=== PATIENT | male | born 1995 | race Caucasian/White ===

== ENCOUNTER 2017-06-17 13:44 | Inpatient (IN) | payer MEDICAID ==
[~2017-06-17] VITALS: Ht 157.5 cm; Wt 39.0 kg
[2017-06-17 15:31] LABS: BASOPHIL % 0.2 % (0-2); PLATELET COUNT 211 x10^3mcL (130-400); RED CELL DISTRIBUTION WIDTH 12.9 % (11.5-14.5)
[2017-06-17 15:42] LABS: CALCIUM 8.5 mg/dL (8.5-10.1); CARBON DIOXIDE 30.9 mmol/L (21-32); CHLORIDE SERUM 102 mmol/L (98-107); CREATININE SERUM 0.6 mg/dL (0.7-1.3); GFR1 > 60 mL/min; GLUCOSE SERUM 86 mg/dL (74-106); POTASSIUM SERUM 4.2 mmol/L (3.5-5.1); SODIUM SERUM 139 mmol/L (136-145)
[2017-06-17 15:48] LABS: ALKALINE PHOSPHATASE 73 U/L (46-116); ALT/SGPT 30 U/L (16-63); AST/SGOT 37 U/L (15-37); BILIRUBIN TOTAL 0.34 mg/dL (0.20-1.00); TOTAL PROTEIN, SERUM 6.8 g/dL (6.4-8.2)
[2017-06-17 15:55] LABS: ALBUMIN 3.3 g/dL (3.4-5.0)
[2017-06-17] MEDS ORDERED: LAMOTRIGINE100 M1 PO (16:46)
[2017-06-17] MEDS ORDERED: FLUOXETINE HYDR20 M2 PO (16:46)
[2017-06-17] MEDS ORDERED: SEROQUEL100 MG PO (16:47)
[2017-06-17] MEDS ORDERED: POLYETHYLENE GL (16:47)
[2017-06-17] MEDS ORDERED: LORAZEPAM1 MG PO (16:48)
[2017-06-17 17:52] VITALS: BP 117/64
[2017-06-17 18:09] LABS: MAGNESIUM 2.2 mg/dL (1.8-2.4); PHOSPHOROUS 3.7 mg/dL (2.5-4.9)
[2017-06-17 18:10] LABS: CHOLESTEROL/HDL RATIO 2.8
[2017-06-17 18:11] LABS: T3 TOTAL 0.55 ng/mL
[2017-06-17 18:18] LABS: FREE T4 0.87 ng/dL (0.76-1.46); FREE THYROXINE INDEX 2.3 ug/dL (1.4-4.5); T4(THYROXINE) 7.1 ug/dL (4.7-13.3)
[2017-06-17 21:00] VITALS: BP 104/62
[2017-06-18 06:00] VITALS: BP 110/54
[2017-06-18 06:20] LABS: BASOPHIL % 0.2 % (0-2); PLATELET COUNT 213 x10^3mcL (130-400); RED CELL DISTRIBUTION WIDTH 13.2 % (11.5-14.5)
[2017-06-18 06:44] LABS: CARBON DIOXIDE 26.5 mmol/L (21-32); CHLORIDE SERUM 103 mmol/L (98-107); CREATININE SERUM 0.8 mg/dL (0.7-1.3); GFR1 > 60 mL/min; GLUCOSE SERUM 78 mg/dL (74-106); POTASSIUM SERUM 4.2 mmol/L (3.5-5.1); SODIUM SERUM 140 mmol/L (136-145)
[2017-06-18 09:24] VITALS: BP 134/82
[2017-06-18 13:13] VITALS: BP 129/62
[2017-06-18 16:32] VITALS: BP 100/65
[2017-06-18 21:50] VITALS: BP 105/72
[2017-06-19 05:39] VITALS: BP 94/70
[2017-06-19 06:49] LABS: BASOPHIL % 0.3 % (0-2); PLATELET COUNT 211 x10^3mcL (130-400); RED CELL DISTRIBUTION WIDTH 12.9 % (11.5-14.5)
[2017-06-19 07:16] LABS: CALCIUM 9.3 mg/dL (8.5-10.1); CARBON DIOXIDE 27.4 mmol/L (21-32); CREATININE SERUM 0.7 mg/dL (0.7-1.3); GFR1 > 60 mL/min; GLUCOSE SERUM 81 mg/dL (74-106)
[2017-06-19 09:17] LABS: CHLORIDE SERUM 103 mmol/L (98-107); POTASSIUM SERUM 4.2 mmol/L (3.5-5.1); SODIUM SERUM 140 mmol/L (136-145)
[2017-06-19 14:00] VITALS: BP 98/53
[2017-06-19 18:09] VITALS: BP 124/57
[2017-06-19 19:20] VITALS: BP 108/52
[2017-06-20 06:11] VITALS: BP 119/60
[2017-06-20 08:59] VITALS: BP 120/68
[2017-06-20 17:51] VITALS: BP 125/77
[2017-06-20 21:46] VITALS: BP 131/72
[2017-06-21 06:44] VITALS: BP 99/59
[2017-06-21 07:19] LABS: BASOPHIL % 0.2 % (0-2); PLATELET COUNT 338 x10^3mcL (130-400); RED CELL DISTRIBUTION WIDTH 12.9 % (11.5-14.5)
[2017-06-21 07:53] LABS: CALCIUM 8.6 mg/dL (8.5-10.1); CARBON DIOXIDE 25.8 mmol/L (21-32); CHLORIDE SERUM 102 mmol/L (98-107); CREATININE SERUM 0.8 mg/dL (0.7-1.3); GFR1 > 60 mL/min; GLUCOSE SERUM 80 mg/dL (74-106); MAGNESIUM 2.3 mg/dL (1.8-2.4); POTASSIUM SERUM 4.5 mmol/L (3.5-5.1); SODIUM SERUM 138 mmol/L (136-145)
[2017-06-21 16:52] VITALS: BP 144/74
[2017-06-21 19:07] LABS: microscopic required? YES; urine erythrocyte 2+ (NEGATIVE)
[2017-06-21 22:26] VITALS: BP 108/49
[2017-06-22 03:10] VITALS: BP 100/48
[2017-06-22 07:42] VITALS: BP 115/91
[2017-06-22 08:06] LABS: CALCIUM 9.4 mg/dL (8.5-10.1); CARBON DIOXIDE 30.9 mmol/L (21-32); CHLORIDE SERUM 105 mmol/L (98-107); CREATININE SERUM 0.7 mg/dL (0.7-1.3); GFR1 > 60 mL/min; GLUCOSE SERUM 75 mg/dL (74-106); MAGNESIUM 2.2 mg/dL (1.8-2.4); PHOSPHOROUS 4.7 mg/dL (2.5-4.9); POTASSIUM SERUM 4.9 mmol/L (3.5-5.1); SODIUM SERUM 143 mmol/L (136-145)
[2017-06-22 08:08] LABS: BASOPHIL % 0.3 % (0-2); PLATELET COUNT 246 x10^3mcL (130-400); RED CELL DISTRIBUTION WIDTH 13.2 % (11.5-14.5)
[2017-06-22 11:24] VITALS: BP 136/73
[2017-06-22 15:48] VITALS: BP 109/63
[2017-06-22 19:59] VITALS: BP 111/63
[2017-06-22 23:19] VITALS: BP 125/71
[2017-06-23 03:15] VITALS: BP 119/49
[2017-06-23 07:29] VITALS: BP 108/75
[2017-06-23 11:35] VITALS: BP 102/82
[2017-06-23 15:40] VITALS: BP 102/60
[2017-06-23 21:30] VITALS: BP 122/58
[2017-06-24 05:46] VITALS: BP 92/47
[2017-06-25 05:27] VITALS: BP 111/47
[2017-06-25 10:05] VITALS: BP 120/70
[2017-06-25 17:13] VITALS: BP 105/63
[2017-06-25 20:42] VITALS: BP 94/47
[2017-06-26 05:44] VITALS: BP 104/68
[2017-06-26 09:34] VITALS: BP 92/59
[2017-06-26 17:50] VITALS: BP 103/62
[2017-06-26 19:40] VITALS: BP 109/66
[2017-06-27 05:40] VITALS: BP 114/71
[2017-06-27 08:07] VITALS: BP 122/73
[2017-06-27 09:57] VITALS: Ht 157.5 cm; Wt 39.0 kg
[2017-06-27 17:24] VITALS: BP 120/68
[2017-06-27 19:20] VITALS: BP 111/50
[2017-06-28 07:07] VITALS: BP 103/56
[2017-06-28 10:10] VITALS: BP 94/54
[2017-06-28 21:12] VITALS: BP 96/61
[2017-06-29 05:27] VITALS: BP 91/51
[2017-06-29 09:30] VITALS: BP 109/61
[2017-06-29 21:47] VITALS: BP 102/63
[2017-06-30 06:50] VITALS: BP 93/51
[2017-06-30 06:54] VITALS: BP 95/55
[2017-06-30 09:09] VITALS: BP 83/43
[2017-06-30 11:10] VITALS: BP 95/45
[2017-06-30 16:18] VITALS: BP 99/49
[2017-06-30 21:24] VITALS: BP 101/45
[2017-07-01 06:19] VITALS: BP 113/74
[2017-07-01 09:30] VITALS: BP 103/56
[2017-07-02 05:47] VITALS: BP 112/73
[2017-07-02 09:55] VITALS: BP 118/65
[2017-07-02 17:42] VITALS: BP 123/55
[2017-07-02 22:06] VITALS: BP 121/76
[2017-07-03 06:12] VITALS: BP 136/76
[2017-07-03 09:49] VITALS: BP 103/54; BP 93/61
[2017-07-04 09:49] VITALS: BP 126/80
[2017-07-04 17:02] VITALS: BP 103/64
[2017-07-04 22:40] VITALS: BP 149/86
[2017-07-04 23:40] VITALS: BP 127/70
[2017-07-05 06:40] VITALS: BP 103/54
[2017-07-05 08:15] VITALS: BP 132/60
[2017-07-05 10:31] VITALS: BP 121/59
[2017-07-05 16:52] VITALS: BP 96/45
[2017-07-05 21:15] VITALS: BP 126/73
[2017-07-06 06:38] VITALS: BP 101/64
[2017-07-06 15:31] VITALS: BP 121/67
[2017-07-06 19:11] VITALS: BP 126/74
[2017-07-07 18:07] VITALS: BP 121/59
[2017-07-07 20:35] VITALS: BP 111/57
[2017-07-08 08:30] VITALS: BP 112/55
[2017-07-08 20:16] VITALS: BP 110/59
[2017-07-09 06:30] VITALS: BP 101/54
[2017-07-09 10:00] VITALS: BP 106/67
[2017-07-09 17:30] VITALS: BP 106/59
[2017-07-10 01:15] VITALS: BP 105/56
[2017-07-10 06:25] VITALS: BP 106/67
[2017-07-10 08:42] VITALS: BP 126/66
[2017-07-10 17:51] VITALS: BP 107/55
[2017-07-10 20:20] VITALS: BP 117/68; BP 96/44
[2017-07-11 05:30] VITALS: BP 101/56
[2017-07-11 18:15] VITALS: BP 107/56
[2017-07-11 21:38] VITALS: BP 118/65
[2017-07-12 05:30] VITALS: BP 97/53
[2017-07-12 18:00] VITALS: BP 116/68
[2017-07-12 19:49] VITALS: BP 107/61
[2017-07-13 06:06] VITALS: BP 107/66
[2017-07-13 10:33] VITALS: BP 111/57
[2017-07-13 19:35] VITALS: BP 118/63
[2017-07-14 06:19] VITALS: BP 97/58
[2017-07-14 10:00] VITALS: BP 94/47
[2017-07-14 18:18] VITALS: BP 91/52
[2017-07-15 06:00] VITALS: BP 84/52
[2017-07-15 06:20] VITALS: BP 94/54
[2017-07-15 08:00] VITALS: BP 108/72
[2017-07-15 18:30] VITALS: BP 108/67
[2017-07-15 21:52] VITALS: BP 116/62
[2017-07-16 06:32] VITALS: BP 109/72
[2017-07-16 08:30] VITALS: BP 99/61
[2017-07-16 19:13] VITALS: BP 112/58
[2017-07-16 20:24] VITALS: BP 132/91
[2017-07-17 06:21] VITALS: BP 98/52
[2017-07-17 18:00] VITALS: BP 115/63
[2017-07-17 20:35] VITALS: BP 142/67
[2017-07-18 05:51] VITALS: BP 123/63
[2017-07-18 09:29] VITALS: BP 109/67
[2017-07-18 22:30] VITALS: BP 102/59; BP 12/59
[2017-07-19 06:53] VITALS: BP 95/76
[2017-07-19 18:07] VITALS: BP 111/64
[2017-07-19 20:29] VITALS: BP 119/70
[2017-07-20 05:19] VITALS: BP 101/57
[2017-07-20 17:10] VITALS: BP 85/56
[2017-07-20 22:00] VITALS: BP 97/51
[2017-07-21 09:32] VITALS: BP 92/45
[2017-07-22 06:01] VITALS: BP 109/73
[2017-07-22 08:09] VITALS: BP 100/52
[2017-07-22 18:00] VITALS: BP 112/72
[2017-07-22 20:54] VITALS: BP 101/57
[2017-07-23 06:01] VITALS: BP 112/62
[2017-07-23 09:30] VITALS: BP 103/60
[2017-07-23 17:39] VITALS: BP 104/60
[2017-07-23 22:00] VITALS: BP 114/65
[2017-07-24 05:20] VITALS: BP 112/61
[2017-07-24 08:20] VITALS: BP 119/65
[2017-07-24 18:33] VITALS: BP 104/57
[2017-07-25 09:52] VITALS: BP 101/61
[2017-07-25 18:58] VITALS: BP 120/79
[2017-07-25 21:02] VITALS: BP 121/76
[2017-07-26 04:36] VITALS: BP 98/60
[2017-07-26 11:08] VITALS: BP 99/74
[2017-07-26 17:30] VITALS: BP 116/59
[2017-07-26 20:26] VITALS: BP 122/81
[2017-07-27 01:00] VITALS: BP 130/80
[2017-07-27 09:00] VITALS: BP 115/73
[2017-07-27 16:48] VITALS: BP 100/62
[2017-07-27 21:42] VITALS: BP 106/59
[2017-07-28 06:01] VITALS: BP 103/60
[2017-07-28 10:35] VITALS: BP 130/61
[2017-07-28 17:39] VITALS: BP 100/69
[2017-07-28 22:36] VITALS: BP 113/63
[2017-07-29 05:21] VITALS: BP 122/61
[2017-07-29 19:00] VITALS: BP 87/43
[2017-07-30 03:47] VITALS: BP 103/59
[2017-07-30 10:11] VITALS: BP 100/64
[2017-07-30 17:47] VITALS: BP 105/44
[2017-07-31 05:25] VITALS: BP 126/84
[2017-07-31 09:29] VITALS: BP 91/57
[2017-07-31 18:42] VITALS: BP 91/55
[2017-07-31 21:45] VITALS: BP 96/51
[2017-08-01 06:01] VITALS: BP 103/59
[2017-08-01 08:00] VITALS: BP 108/68
[2017-08-01 13:09] VITALS: BP 96/54
[2017-08-01 17:55] VITALS: BP 114/75
[2017-08-01 20:31] VITALS: BP 111/68
[2017-08-02 05:51] VITALS: BP 115/65
[2017-08-02 14:00] VITALS: BP 92/54
[2017-08-02 16:30] VITALS: BP 119/67
[2017-08-02 20:51] VITALS: BP 103/60
[2017-08-03 06:16] VITALS: BP 116/59
[2017-08-03 09:12] VITALS: BP 129/71
[2017-08-03 19:20] VITALS: BP 105/52
[2017-08-04 06:14] VITALS: BP 99/56
[2017-08-04 09:33] VITALS: BP 111/59
[2017-08-04 09:35] VITALS: BP 89/59
[2017-08-04 17:49] VITALS: BP 105/67
[2017-08-04 20:32] VITALS: BP 107/60
[2017-08-05 05:35] VITALS: BP 110/60
[2017-08-05 09:00] VITALS: BP 111/65
[2017-08-05 16:00] VITALS: BP 93/54
[2017-08-05 20:04] VITALS: BP 103/65
[2017-08-06 05:52] VITALS: BP 95/59
[2017-08-06 09:30] VITALS: BP 109/64
[2017-08-06 16:50] VITALS: BP 104/64
[2017-08-06 20:16] VITALS: BP 108/70
[2017-08-07 05:30] VITALS: BP 171/80
[2017-08-07 06:03] VITALS: BP 145/73
[2017-08-07 10:22] VITALS: BP 98/57
[2017-08-08 06:51] VITALS: BP 118/76
[2017-08-08 16:17] VITALS: BP 112/74
[2017-08-08 21:16] VITALS: BP 111/79
[2017-08-09 05:26] VITALS: BP 141/63
[2017-08-09 18:03] VITALS: BP 108/54
[2017-08-10 06:14] VITALS: BP 112/61
[2017-08-10 17:22] VITALS: BP 108/48
[2017-08-10 20:47] VITALS: BP 93/45
[2017-08-11 06:14] VITALS: BP 92/58
[2017-08-11 09:48] VITALS: BP 101/53
[2017-08-11 16:01] VITALS: BP 104/61
[2017-08-11 20:00] VITALS: BP 121/55
[2017-08-12 05:47] VITALS: BP 113/64
[2017-08-12 10:00] VITALS: BP 116/68
[2017-08-12 18:49] VITALS: BP 93/51
[2017-08-12 20:30] VITALS: BP 106/68
[2017-08-13 06:01] VITALS: BP 103/59
[2017-08-13 10:00] VITALS: BP 112/72
[2017-08-13 22:04] VITALS: BP 97/63
[2017-08-14 06:29] VITALS: BP 109/65
[2017-08-14 09:18] VITALS: BP 104/43; BP 131/105
[2017-08-14 15:43] VITALS: BP 105/43
[2017-08-14 21:59] VITALS: BP 103/64
[2017-08-15 09:56] VITALS: BP 117/54
[2017-08-15 19:17] VITALS: BP 110/61
[2017-08-15 22:26] VITALS: BP 114/48
[2017-08-16 05:46] VITALS: BP 110/69
[2017-08-16 10:06] VITALS: BP 106/50
[2017-08-16 16:00] VITALS: BP 115/75
[2017-08-16 20:21] VITALS: BP 115/53
[2017-08-17 06:13] VITALS: BP 111/60
[2017-08-17 09:19] VITALS: BP 101/71
[2017-08-17 13:53] VITALS: BP 107/77
[2017-08-17 17:41] VITALS: BP 101/53
[2017-08-18 05:26] VITALS: BP 106/71
[2017-08-18 10:00] VITALS: BP 117/67; BP 120/73
[2017-08-18 14:05] VITALS: BP 122/70
[2017-08-18 18:18] VITALS: BP 122/79
[2017-08-18 21:22] VITALS: BP 118/66
[2017-08-19 05:34] VITALS: BP 111/64
[2017-08-19 09:30] VITALS: BP 112/68
[2017-08-19 18:30] VITALS: BP 128/69
[2017-08-19 18:59] VITALS: BP 128/69
[2017-08-19 21:30] VITALS: BP 108/64
[2017-08-20 05:21] VITALS: BP 103/70
[2017-08-20 09:33] VITALS: BP 119/67
[2017-08-20 10:12] LABS: CALCIUM 9.3 mg/dL (8.5-10.1); CARBON DIOXIDE 29.9 mmol/L (21-32); CHLORIDE SERUM 108 mmol/L (98-107); CREATININE SERUM 0.9 mg/dL (0.7-1.3); GFR1 > 60 mL/min; GLUCOSE SERUM 92 mg/dL (74-106); MAGNESIUM 2.1 mg/dL (1.8-2.4); PHOSPHOROUS 4.1 mg/dL (2.5-4.9); POTASSIUM SERUM 5.3 mmol/L (3.5-5.1); SODIUM SERUM 147 mmol/L (136-145)
[2017-08-20 10:18] LABS: BASOPHIL % 0.2 % (0-2); PLATELET COUNT 267 x10^3mcL (130-400); RED CELL DISTRIBUTION WIDTH 13.9 % (11.5-14.5)
[2017-08-20 14:44] LABS: UA SPECIFIC GRAVITY 1.025 (1.005-1.035); microscopic required? YES; urine erythrocyte 3+ (NEGATIVE)
[2017-08-20 17:57] VITALS: BP 119/81
[2017-08-21 09:23] VITALS: BP 126/71
[2017-08-21 13:20] VITALS: BP 117/69
[2017-08-21 14:41] LABS: BASOPHIL % 0.3 % (0-2); PLATELET COUNT 213 x10^3mcL (130-400); RED CELL DISTRIBUTION WIDTH 13.7 % (11.5-14.5)
[2017-08-21 14:54] LABS: CALCIUM 8.9 mg/dL (8.5-10.1); CARBON DIOXIDE 31.8 mmol/L (21-32); CHLORIDE SERUM 105 mmol/L (98-107); CREATININE SERUM 0.8 mg/dL (0.7-1.3); GFR1 > 60 mL/min; GLUCOSE SERUM 100 mg/dL (74-106); POTASSIUM SERUM 3.9 mmol/L (3.5-5.1); SODIUM SERUM 144 mmol/L (136-145)
[2017-08-21 19:23] VITALS: BP 119/84
[2017-08-22 07:39] LABS: BASOPHIL % 0.2 % (0-2); CALCIUM 9.1 mg/dL (8.5-10.1); CARBON DIOXIDE 27.5 mmol/L (21-32); CHLORIDE SERUM 105 mmol/L (98-107); CREATININE SERUM 0.8 mg/dL (0.7-1.3); GFR1 > 60 mL/min; GLUCOSE SERUM 86 mg/dL (74-106); PLATELET COUNT 225 x10^3mcL (130-400); RED CELL DISTRIBUTION WIDTH 13.8 % (11.5-14.5); SODIUM SERUM 141 mmol/L (136-145)
[2017-08-22 08:00] VITALS: BP 120/70
[2017-08-22 22:37] VITALS: BP 115/74
[2017-08-23 05:23] VITALS: BP 113/65
[2017-08-23 07:40] LABS: BASOPHIL % 0.3 % (0-2); PLATELET COUNT 226 x10^3mcL (130-400); RED CELL DISTRIBUTION WIDTH 13.5 % (11.5-14.5)
[2017-08-23 07:53] LABS: CALCIUM 9.3 mg/dL (8.5-10.1); CARBON DIOXIDE 27.3 mmol/L (21-32); CHLORIDE SERUM 105 mmol/L (98-107); CREATININE SERUM 0.8 mg/dL (0.7-1.3); GFR1 > 60 mL/min; GLUCOSE SERUM 87 mg/dL (74-106); MAGNESIUM 2.4 mg/dL (1.8-2.4); PHOSPHOROUS 4.7 mg/dL (2.5-4.9); SODIUM SERUM 142 mmol/L (136-145)
[2017-08-23 10:35] VITALS: BP 128/71
[2017-08-23 17:08] VITALS: BP 129/64
[2017-08-23 21:15] VITALS: BP 109/67
[2017-08-24 05:35] VITALS: BP 116/73
[2017-08-24 06:47] LABS: BASOPHIL % 0.3 % (0-2); PLATELET COUNT 243 x10^3mcL (130-400); RED CELL DISTRIBUTION WIDTH 13.7 % (11.5-14.5)
[2017-08-24 09:07] LABS: CALCIUM 9.5 mg/dL (8.5-10.1); CARBON DIOXIDE 24.7 mmol/L (21-32); CHLORIDE SERUM 105 mmol/L (98-107); CREATININE SERUM 0.8 mg/dL (0.7-1.3); GFR1 > 60 mL/min; GLUCOSE SERUM 90 mg/dL (74-106); MAGNESIUM 2.1 mg/dL (1.8-2.4); POTASSIUM SERUM 5.4 mmol/L (3.5-5.1); SODIUM SERUM 144 mmol/L (136-145)
[2017-08-24 10:01] VITALS: BP 119/74
[2017-08-24 18:02] VITALS: BP 104/52
[2017-08-24 20:52] VITALS: BP 95/55
[2017-08-25 05:50] VITALS: BP 117/72
[2017-08-25 07:18] LABS: CALCIUM 9.3 mg/dL (8.5-10.1); CARBON DIOXIDE 31.1 mmol/L (21-32); CHLORIDE SERUM 104 mmol/L (98-107); CREATININE SERUM 0.7 mg/dL (0.7-1.3); GFR1 > 60 mL/min; GLUCOSE SERUM 89 mg/dL (74-106); MAGNESIUM 2.1 mg/dL (1.8-2.4); PHOSPHOROUS 4.8 mg/dL (2.5-4.9); POTASSIUM SERUM 4.2 mmol/L (3.5-5.1); SODIUM SERUM 144 mmol/L (136-145)
[2017-08-25 09:50] VITALS: BP 111/63
[2017-08-25 21:13] VITALS: BP 120/50
[2017-08-26 05:29] VITALS: BP 101/61
[2017-08-26 06:40] LABS: CALCIUM 9.5 mg/dL (8.5-10.1); CARBON DIOXIDE 30.5 mmol/L (21-32); CHLORIDE SERUM 108 mmol/L (98-107); CREATININE SERUM 1.1 mg/dL (0.7-1.3); GFR1 > 60 mL/min; GLUCOSE SERUM 97 mg/dL (74-106); POTASSIUM SERUM 5.4 mmol/L (3.5-5.1); SODIUM SERUM 150 mmol/L (136-145)
[2017-08-26 16:00] VITALS: BP 108/61
[2017-08-26 21:15] VITALS: BP 126/51
[2017-08-27 05:32] VITALS: BP 114/62
[2017-08-27 07:12] LABS: CALCIUM 8.9 mg/dL (8.5-10.1); CARBON DIOXIDE 29.8 mmol/L (21-32); CHLORIDE SERUM 106 mmol/L (98-107); CREATININE SERUM 0.9 mg/dL (0.7-1.3); GFR1 > 60 mL/min; GLUCOSE SERUM 89 mg/dL (74-106); POTASSIUM SERUM 4.7 mmol/L (3.5-5.1); SODIUM SERUM 146 mmol/L (136-145)
[2017-08-27 09:00] VITALS: BP 121/73
[2017-08-27 21:32] VITALS: BP 117/58
[2017-08-28 04:30] VITALS: BP 113/75
[2017-08-28 09:15] VITALS: BP 107/51
[2017-08-28 21:23] VITALS: BP 108/51
[2017-08-29 05:34] VITALS: BP 121/51
[2017-08-29 10:08] VITALS: BP 118/53
[2017-08-29 17:30] VITALS: BP 113/39
[2017-08-29 21:36] VITALS: BP 125/76
[2017-08-30 05:53] VITALS: BP 108/67
[2017-08-30 11:06] VITALS: BP 120/59
[2017-08-30 17:15] VITALS: BP 123/72
[2017-08-30 19:43] VITALS: BP 98/55
[2017-08-31 05:24] VITALS: BP 124/75
[2017-08-31 06:22] LABS: BASOPHIL % 0.1 % (0-2); PLATELET COUNT 285 x10^3mcL (130-400); RED CELL DISTRIBUTION WIDTH 13.1 % (11.5-14.5)
[2017-08-31 06:41] LABS: CALCIUM 8.9 mg/dL (8.5-10.1); CARBON DIOXIDE 27.6 mmol/L (21-32); CHLORIDE SERUM 103 mmol/L (98-107); CREATININE SERUM 0.9 mg/dL (0.7-1.3); GFR1 > 60 mL/min; GLUCOSE SERUM 88 mg/dL (74-106); MAGNESIUM 2.2 mg/dL (1.8-2.4); POTASSIUM SERUM 5.2 mmol/L (3.5-5.1); SODIUM SERUM 141 mmol/L (136-145)
[2017-08-31 16:54] VITALS: BP 125/71
[2017-08-31 23:18] VITALS: BP 111/74
[2017-09-01 05:45] VITALS: BP 120/65
[2017-09-01 07:16] LABS: CARBON DIOXIDE 29.9 mmol/L (21-32); CHLORIDE SERUM 103 mmol/L (98-107); CREATININE SERUM 0.7 mg/dL (0.7-1.3); GFR1 > 60 mL/min; GLUCOSE SERUM 96 mg/dL (74-106); POTASSIUM SERUM 4.2 mmol/L (3.5-5.1); SODIUM SERUM 140 mmol/L (136-145)
[2017-09-01 07:28] LABS: BASOPHIL % 0.4 % (0-2); PLATELET COUNT 252 x10^3mcL (130-400); RED CELL DISTRIBUTION WIDTH 13.7 % (11.5-14.5)
[2017-09-01 08:46] VITALS: BP 117/67
[2017-09-01 18:28] VITALS: BP 122/67
[2017-09-01 21:10] VITALS: BP 118/63
[2017-09-02 06:01] VITALS: BP 109/57
[2017-09-02 09:00] VITALS: BP 108/49
[2017-09-02 15:00] VITALS: BP 105/60
[2017-09-02 18:35] VITALS: BP 115/70
[2017-09-02 22:00] VITALS: BP 125/94
[2017-09-03 06:21] VITALS: BP 116/56
[2017-09-03 09:00] VITALS: BP 110/67
[2017-09-03 18:19] VITALS: BP 118/65
[2017-09-03 21:14] VITALS: BP 131/68
[2017-09-04 05:29] VITALS: BP 108/60
[2017-09-04 09:31] VITALS: BP 103/58
[2017-09-04] MEDS ORDERED: SEROQUEL400 M1 PO (12:17)
[2017-09-04] MEDS ORDERED: SEROQUEL200 MG PO (12:17)
[2017-09-04] MEDS ORDERED: RESTORIL30 MG PO (12:18)
[2017-09-04 12:31] VITALS: BP 103/58
== END 2017-09-04 14:32 | DRG 720 ==
LOC: ED 13:44 → IC 16:14 → DU 16:14 → MU 06-19 15:56 → IC 06-22 00:52 → DU 06-23 17:18 → IC 06-23 17:21 → DU 06-23 18:26 → MU 06-23 18:35 → DU 07-05 09:00 → MU 07-05 15:10
PROVIDERS: Emergency Medicine; Family Medicine; Student in an Organized Health Care Education/Training Program
DX: A41.9 Sepsis, unspecified organism (principal); N17.0 Acute kidney failure with tubular necrosis; E44.1 Mild protein-calorie malnutrition; F72 Severe intellectual disabilities; E87.0 Hyperosmolality and hypernatremia; M41.84 Other forms of scoliosis, thoracic region; L03.116 Cellulitis of left lower limb; L97.821 Non-pressure chronic ulcer of other part of left lower leg limited to breakdown of skin; L97.811 Non-pressure chronic ulcer of other part of right lower leg limited to breakdown of skin; L03.114 Cellulitis of left upper limb; K59.09 Other constipation; B35.6 Tinea cruris; F23 Brief psychotic disorder; E83.39 Other disorders of phosphorus metabolism; E87.5 Hyperkalemia; M62.462 Contracture of muscle, left lower leg; M62.461 Contracture of muscle, right lower leg; H54.8 Legal blindness, as defined in USA; H91.3 Deaf nonspeaking, not elsewhere classified; Z68.1 Body mass index [BMI] 19.9 or less, adult; Z91.19 Patient's noncompliance with other medical treatment and regimen
CPT/HCPCS: 83880; 84439; J0690; J1200; J1630; J1885; J1956; J2060; J2270; J3230; J3486; J3490; J7030; J7040; Q0092; Q0162; Q0163